=== PATIENT | male | born 1985 | race African-American/Black ===

== ENCOUNTER 2017-02-05 06:03 | Emergency (ER) | payer SELFPAY ==
[~2017-02-05] VITALS: Ht 185.4 cm; Wt 118.0 kg
[~2017-02-05 06:03] MED LIST: AMOXICILLIN500 MG PO; BACTRIM DS1 TAB PO; CIPROFLOXACN500 MG PO; DOXYCYCL HYC100 M4 PO; LORTAB 10 PO; NAPROSYN500 MG PO; NO; NORCO1 TA1 PO; SILVADENE1 % EX; ULTRAM50 M1 PO
[2017-02-05 06:22] LABS: HEMATOCRIT 46.9 % (39.0-50.0); HEMOGLOBIN 16.1 g/dl (14.0-18.0); IMMATURE GRANULOCYTES 0.4 % (0.0-1.0); MEAN CORPUSCULAR HGB 30.6 pG CALC (26.0-32.0); MEAN CORPUSCULAR HGB CONC 34.3 g/L CALC (32.0-36.0); NEUT# 7.88 thou/uL (1.82-7.42); RED BLOOD COUNT 5.27 mill/uL (4.70-6.10); RED CELL DISTRI WIDTH 14.2 % (11.5-15.5)
[2017-02-05 06:34] LABS: ALBUMIN 4.7 g/dL (3.2-5.0); ALKALINE PHOSPHATASE 116 u/l (38-126); ANION GAP 16 (6-22 (CALC)); BILIRUBIN, TOTAL 0.7 mg/dL (0.0-1.4); BUN 15 mg/dL (9-20); BUN/CREATININE RATIO 11 (12-20 (CALC)); CALCIUM 9.7 mg/dL (8.4-10.2); CARBON DIOXIDE 25 mmol/l (22-30); CHLORIDE 108 mmol/l (95-108); CREATININE 1.4 mg/dL (0.7-1.3); GFR 58 ML/MIN (>=60 (CALC)); GFR FOR AFR.AMER. > 60 ML/MIN (>=60 (CALC)); GLUCOSE 136 mg/dL (75-110); POTASSIUM 3.4 mmol/l (3.5-5.1); SGOT/AST 35 u/l (17-59); SGPT/ALT 28 u/l (21-72); SODIUM 145 mmol/l (137-146); TOTAL PROTEIN 8.5 g/dL (6.3-8.2)
[2017-02-05 06:46] LABS: MYOGLOBIN 55 ng/mL (0 - 121)
[2017-02-05 07:04] LABS: TSH, 3RD GENERATION 0.77 uIU/mL (0.47 - 4.68)
[2017-02-05 07:12] LABS: URINE BILIRUBIN - DIPSTICK NEGATIVE (NEGATIVE); URINE BLOOD DIPSTICK TRACE-INTACT (NEGATIVE); URINE CLARITY SLIGHT CLOUDY; URINE COLOR YELLOW; URINE GLUCOSE - DIPSTICK NEGATIVE (NEGATIVE); URINE KETONE NEGATIVE (NEGATIVE); URINE NITRITE - DIPSTICK NEGATIVE (Negative); URINE PH 6.5 (4.5-8.0); URINE PROTEIN - DIPSTICK NEGATIVE (NEG-TRACE); URINE SPECIFIC GRAVITY <=1.005
[2017-02-05 07:16] LABS: URINE LEUK ESTERASE SMALL (NEGATIVE)
[2017-02-05 07:17] LABS: BARBITURATES NEGATIVE (NEGATIVE); COCAINE POSITIVE (NEGATIVE); METHADONE NEGATIVE (NEGATIVE); OXCYCODONE NEGATIVE (NEGATIVE); TETRAHYDROCANNABIONOL NEGATIVE (NEGATIVE); TRICYLIC ANTIDEPRESSANTS NEGATIVE (NEGATIVE)
[2017-02-05 07:22] LABS: URINE BACTERIA FEW hpf; URINE RBC 0-2 RBC/hpf (0-5); URINE SQUAMOUS EPITHELIAL CELL FEW EPI/hpf (0-FEW)
[2017-02-05] MEDS ORDERED: CEPHALEXIN500 MG PO (07:49)
[2017-02-05 07:50] VITALS: BP 153/85
== END 2017-02-05 07:55 | disposition home or self-care (01) | DRG 897 ==
LOC: ED 06:03
PROVIDERS: Emergency Medicine
DX: F14.90 Cocaine use, unspecified, uncomplicated (principal); I48.91 Unspecified atrial fibrillation; N39.0 Urinary tract infection, site not specified; R07.9 Chest pain, unspecified; F17.210 Nicotine dependence, cigarettes, uncomplicated

== ENCOUNTER 2017-02-13 14:49 | Emergency (ER) | payer SELFPAY ==
[~2017-02-13] VITALS: Ht 185.4 cm; Wt 127.2 kg
[~2017-02-13 14:49] MED LIST changes: +CEPHALEXIN500 MG PO
[2017-02-13 15:41] LABS: HEMATOCRIT 43.3 % (39.0-50.0); HEMOGLOBIN 14.2 g/dl (14.0-18.0); IMMATURE GRANULOCYTES 0.3 % (0.0-1.0); MEAN CELL VOLUME 91.5 fL CALC (80.0-100.0); MEAN CORPUSCULAR HGB CONC 32.8 g/L CALC (32.0-36.0); NEUT# 3.12 thou/uL (1.82-7.42); RED BLOOD COUNT 4.73 mill/uL (4.70-6.10); RED CELL DISTRI WIDTH 14.5 % (11.5-15.5)
[2017-02-13 15:50] LABS: ALBUMIN 4.4 g/dL (3.2-5.0); ALKALINE PHOSPHATASE 104 u/l (38-126); ANION GAP 15 (6-22 (CALC)); BILIRUBIN, TOTAL 0.4 mg/dL (0.0-1.4); BUN 12 mg/dL (9-20); BUN/CREATININE RATIO 9 (12-20 (CALC)); CALCIUM 9.8 mg/dL (8.4-10.2); CARBON DIOXIDE 25 mmol/l (22-30); CHLORIDE 107 mmol/l (95-108); CREATININE 1.3 mg/dL (0.7-1.3); GFR > 60 ML/MIN (>=60 (CALC)); GFR FOR AFR.AMER. > 60 ML/MIN (>=60 (CALC)); GLUCOSE 101 mg/dL (75-110); POTASSIUM 4.7 mmol/l (3.5-5.1); SGOT/AST 29 u/l (17-59); SGPT/ALT 34 u/l (21-72); SODIUM 142 mmol/l (137-146); TOTAL PROTEIN 7.6 g/dL (6.3-8.2)
[2017-02-13 17:09] LABS: URINE BILIRUBIN - DIPSTICK NEGATIVE (NEGATIVE); URINE BLOOD DIPSTICK NEGATIVE (NEGATIVE); URINE CLARITY CLEAR; URINE COLOR YELLOW; URINE GLUCOSE - DIPSTICK NEGATIVE (NEGATIVE); URINE KETONE NEGATIVE (NEGATIVE); URINE NITRITE - DIPSTICK NEGATIVE (Negative); URINE PH 5.5 (4.5-8.0); URINE PROTEIN - DIPSTICK NEGATIVE (NEG-TRACE); URINE SPECIFIC GRAVITY 1.025; URINE UROBILINOGEN - DIPSTICK 0.2 E.U./dL (0.2)
[2017-02-13 17:17] LABS: URINE LEUK ESTERASE SMALL (NEGATIVE)
[2017-02-13 17:18] LABS: BARBITURATES NEGATIVE (NEGATIVE); COCAINE POSITIVE (NEGATIVE); METHADONE NEGATIVE (NEGATIVE); OXCYCODONE NEGATIVE (NEGATIVE); TETRAHYDROCANNABIONOL POSITIVE (NEGATIVE); TRICYLIC ANTIDEPRESSANTS NEGATIVE (NEGATIVE)
[2017-02-13 17:38] LABS: URINE RBC 25-50 RBC/hpf (0-5); URINE SQUAMOUS EPITHELIAL CELL FEW EPI/hpf (0-FEW); URINE TRICHOMONAS FEW hpf
[2017-02-13] MEDS ORDERED: TORADOL PO (17:45)
[2017-02-13] MEDS ORDERED: FLEXERIL PO (17:45)
[2017-02-13] MEDS ORDERED: SEPTRA4001 PO (17:49)
[2017-02-13 17:59] VITALS: BP 117/59
== END 2017-02-13 18:16 | disposition home or self-care (01) | DRG 690 ==
LOC: ED 14:49
PROVIDERS: Emergency Medicine
DX: N39.0 Urinary tract infection, site not specified (principal); S39.012A Strain of muscle, fascia and tendon of lower back, initial encounter; F17.210 Nicotine dependence, cigarettes, uncomplicated; X58.XXXA Exposure to other specified factors, initial encounter

== ENCOUNTER 2017-10-06 15:51 | Emergency (ER) | payer SELFPAY ==
[~2017-10-06] VITALS: Ht 185.4 cm; Wt 130.0 kg
[~2017-10-06 15:51] MED LIST changes: +FLEXERIL PO; +SEPTRA4001 PO; +TORADOL PO
[2017-10-06] MEDS ORDERED: KEFLEX500 MG PO (17:01)
[2017-10-06 17:15] VITALS: BP 160/70
== END 2017-10-06 17:15 | disposition home or self-care (01) | DRG 605 ==
LOC: ED 15:51
PROC: 0HC1XZZ Extirpation of Matter from Face Skin, External Approach (ICD-10-PCS; principal; 2017-10-06)
DX: S01.441A Puncture wound with foreign body of right cheek and temporomandibular area, initial encounter (principal); F17.210 Nicotine dependence, cigarettes, uncomplicated; W34.010A Accidental discharge of airgun, initial encounter

== ENCOUNTER 2019-11-24 09:41 | Emergency (ER) | payer SELFPAY ==
[~2019-11-24] VITALS: Ht 185.4 cm; Wt 127.0 kg
[~2019-11-24 09:41] MED LIST changes: +KEFLEX500 MG PO
[2019-11-24] MEDS ORDERED: AMOXICILLIN/PO500 MG PO (10:55)
[2019-11-24 11:05] VITALS: BP 158/84
== END 2019-11-24 11:05 | disposition home or self-care (01) | DRG 153 ==
LOC: ED 09:41
DX: J02.9 Acute pharyngitis, unspecified (principal); H66.92 Otitis media, unspecified, left ear; F17.200 Nicotine dependence, unspecified, uncomplicated

== ENCOUNTER 2020-06-13 12:11 | Emergency (ER) | payer SELFPAY ==
[~2020-06-13] VITALS: Ht 185.4 cm; Wt 127.0 kg
[~2020-06-13 12:11] MED LIST changes: +AMOXICILLIN/PO500 MG PO
[2020-06-13 14:12] VITALS: BP 117/85
== END 2020-06-13 14:12 | disposition home or self-care (01) | DRG 552 ==
LOC: ED 12:11
DX: M51.37 Other intervertebral disc degeneration, lumbosacral region (principal); F17.210 Nicotine dependence, cigarettes, uncomplicated

== ENCOUNTER 2021-06-10 12:29 | Emergency (ER) | payer SELFPAY | END 2021-06-10 13:44 | disposition left against medical advice (07) | DRG 951 | LOC: ED 12:29 → LWOBS 13:43 | DX: Z53.21 Procedure and treatment not carried out due to patient leaving prior to being seen by health care provider (principal) ==